=== PATIENT | male | born 1950 | race Caucasian/White ===

== ENCOUNTER 2016-08-17 09:48 | Day surgery (SDC) | payer BC, OTHER ==
[~2016-08-17] VITALS: Ht 185.4 cm; Wt 70.5 kg
[~2016-08-17 09:48] MED LIST: CATAPRES0.1 MG PO; COUMADIN10 MG PO; LASIX40 MG PO; LOPRESSOR25 MG PO; LOPRESSOR50 MG PO; NORVASC10 MG PO; OXYCODONE HCL10 MG PO; PROGRAF1 MG PO; RENA-VITE RX T1 EACH PO; XANAX0.25 MG PO; ZOLOFT50 MG PO
[2016-08-17] MEDS ORDERED: PROGRAF5 MG PO (10:00)
[2016-08-17 10:05] VITALS: BP 162/79
[2016-08-17 10:16] LABS: HEMATOCRIT 35.5 % (38.0-50.0); MCH 32.1 PG (29.0-34.0); MCV 97.3 FL (86-99); MEAN PLAT.VOLUME 10.6 uM^3 (9.0-12.4); PLATELET COUNT 210 K/uL (156-360); RBC DIS.WIDTH-CV 14.4 % (11.8-14.6); RBC DIS.WIDTH-SD 51.8 % (39-53); RED BLOOD COUNT 3.65 M/uL (4.00-5.50); WHITE BLOOD COUNT 8.7 K/uL (4.1-10.2)
[2016-08-17 10:25] LABS: INTER. NORMALIZED RATIO 1.2; PROTHROMBIN TIME 12.4 (9.2-11.2)
[2016-08-17 10:26] LABS: CHLORIDE 96 mEq/L (99-109); POTASSIUM 4.3 mEq/L (3.7-5.4); SODIUM 133 mEq/L (136-147)
[2016-08-17 10:28] LABS: GLUCOSE 119 mg/dL (70-99)
[2016-08-17 10:30] LABS: ANION GAP 13 MEQ/L (2-14)
[2016-08-17 10:32] LABS: GFR ESTIMATE (CALCULATED) 10 mL/min/
[2016-08-17 10:33] LABS: UREA NITROGEN (BUN) 41 mg/dL (9-23)
[2016-08-17 11:47] LABS: METH RESISTANT S AUREUS PCR NEGATIVE (NEGATIVE)
[2016-08-17 11:48] LABS: PROBE CHECK PASS; SPECIMEN PROCESSING CONTROL PASS
[2016-08-17] MEDS ORDERED: OXAYDO5 MG PO (13:07)
[2016-08-17 14:22] VITALS: BP 131/95
[2016-08-17 14:50] VITALS: BP 129/61
== END 2016-08-17 14:55 | disposition home or self-care (01) ==
LOC: SDC 09:48
PROVIDERS: Surgery
DX: I12.0 Hypertensive chronic kidney disease with stage 5 chronic kidney disease or end stage renal disease (principal); E11.22 Type 2 diabetes mellitus with diabetic chronic kidney disease; N18.6 End stage renal disease; Z99.2 Dependence on renal dialysis; Z94.4 Liver transplant status; I48.91 Unspecified atrial fibrillation; Z85.05 Personal history of malignant neoplasm of liver; Z86.19 Personal history of other infectious and parasitic diseases; F17.200 Nicotine dependence, unspecified, uncomplicated
CPT/HCPCS: 80048; 85027; 85610; 87641; 93005; C2628; J0690; J1100; J1170; J1644; J2250; J2405; J3010

== ENCOUNTER → 2016-11-23 | Outpatient (CLI) | payer BC, OTHER ==
[~2016-11-23] MED LIST changes: +OXAYDO5 MG PO; +PROGRAF5 MG PO
== END | disposition home or self-care (01) ==
LOC: AMB 08:00
PROC: 05PYX3Z Removal of Infusion Device from Upper Vein, External Approach (ICD-10-PCS; principal; 2016-11-23)
DX: Z49.01 Encounter for fitting and adjustment of extracorporeal dialysis catheter (principal); N18.6 End stage renal disease